=== PATIENT | female | born 1950 | race Caucasian/White ===

== ENCOUNTER → 2022-04-16 14:14 | Outpatient (BNVA) | payer MEDICARE, MEDICAID, SELFPAY | PROVIDERS: Family Provider Internal Medicine; PCP Student in an Organized Health Care Education/Training Program; Referring Provider Student in an Organized Health Care Education/Training Program; Visit Provider Specialist | DX: G56.11 Other lesions of median nerve, right upper limb (principal); G56.02 Carpal tunnel syndrome, left upper limb | CPT/HCPCS: 95909 ==

== ENCOUNTER → 2022-05-21 15:18 | Outpatient (BNVA) | payer MEDICARE, MEDICAID, SELFPAY | PROVIDERS: Family Provider Internal Medicine; PCP Student in an Organized Health Care Education/Training Program; Referring Provider Student in an Organized Health Care Education/Training Program; Visit Provider Specialist | DX: G56.01 Carpal tunnel syndrome, right upper limb (principal) | CPT/HCPCS: 73110 ==

== ENCOUNTER 2022-05-21 16:19 | Outpatient (CLI) | payer MEDICARE, MEDICAID, SELFPAY | END 2022-05-21 16:20 | disposition home or self-care (01) | LOC: SPT 16:20 | PROVIDERS: Family Provider Internal Medicine; PCP Student in an Organized Health Care Education/Training Program; Visit Provider Specialist | DX: Z46.89 Encounter for fitting and adjustment of other specified devices (principal); G56.01 Carpal tunnel syndrome, right upper limb | CPT/HCPCS: 97760; 99204; L3908 ==

== ENCOUNTER 2022-06-20 07:36 | Day surgery (SDC) | payer MEDICARE, MEDICAID, SELFPAY ==
[2022-06-20 07:59] VITALS: BP 208/96; PULSE 91; RESP 17; TEMP 36.3; O2SAT 97
--- NOTE | 2022-06-20 08:11 | ANES.PREANE2 ---
Pre-Anesthetic Assessment Height/Weight: Height 1.55 m Weight 63.049 kg Temp Pulse Resp BP Pulse Ox O2 Del Method 97.4 F L 91 17 208/96 97 06/20/22 07:59 06/20/22 07:59 06/20/22 07:59 06/20/22 07:59 06/20/22 07:59 06/20/22 07:59 Preop Diagnosis: Right carpal tunnel syndrome Operation Date: 06/20/22 09:30 Proposed Procedures p RIGHT CARPAL TUNNEL RELEASE 56329,G56.0(Right) - Lisa Torrez MD Familial anesthetic complications: none Was Beta Antionette taken within 24 hours: N/A Was Clonidine taken within 24 hours: N/A Last intake: > 8 hrs Social No alcohol and No tobacco Exam alert, oriented x 3, clear to auscultation bilaterally and regular rate & rhythm Airway Mallampati: Class II Dentition: other (no teeth) CV/HEM Hypertension GI Gastroesophageal Reflux Disease Metabolic Diabetes Mellitus and Thyroid Disease Anesthetic Plan ASA status: 3 Anesthesia: General Risk of > 500 ml blood loss (7ml/kg in children): No Medications/Allergies Home Medications Medication Instructions Recorded Confirmed Last Taken Type citalopram 20 mg tablet 20 mg PO DAILY 04/16/22 05/21/22 Unknown History cyclobenzaprine 5 mg tablet 5 mg PO TID PRN Spasms 04/16/22 06/20/22 Unknown History dulaglutide 1.5 mg/0.5 mL mg SUBCUT ONCE 04/16/22 05/21/22 Unknown History subcutaneous pen injector (Trulicity) levothyroxine 125 mcg capsule 125 mcg PO DAILY 04/16/22 06/20/22 06/18/22 History lisinopril 20 mg tablet 20 mg PO BID 04/16/22 06/20/22 Unknown History metformin 1,000 mg tablet 1,000 mg PO BID 04/16/22 06/20/22 Unknown History omeprazole 40 mg capsule,delayed 40 mg PO DAILY 04/16/22 06/20/22 Unknown History release sitagliptin 100 mg tablet (Januvia) 100 mg PO DAILY 04/16/22 06/20/22 Unknown History cock up splint #1 ea 05/21/22 05/21/22 Unknown Rx Allergies Allergy/AdvReac Type Severity Reaction Status Date / Time diazepam [From Valium] Allergy Unknown Verified 05/21/22 15:22 metronidazole [From Flagyl] Allergy Unknown Verified 05/21/22 15:22 nitrofurantoin Allergy Unknown Verified 05/21/22 15:22 [From Macrodantin] Sulfa (Sulfonamide Allergy Unknown Verified 05/21/22 15:22 Antibiotics) [facility] Anesthesia Social History Smoking and tobacco status: never smoked Alcohol intake: never History of recent travel: No Data Anesthesia Cardiac Studies: No Data to Display
[2022-06-20] MEDS: CELEcoxib 200 mg Capsule 400 MG PO (08:24)
[2022-06-20] MEDS: acetaminophen 1,000 MG/100 ML PIGGYBACK 400 MG IV (08:24)
[2022-06-20] MEDS: sodium chloride 0.9% 1,000 ML 30 ML IV (08:24)
[2022-06-20 08:28] LABS: Glucose Point of Care 153 mg/dL (70-110)
--- NOTE | 2022-06-20 09:04 | P.HPUD_ITS ---
Surgery/Procedure H&P Update DATE OF PROCEDURE: June 20, 2022 DATE H&P PERFORMED: 05/21/22 H&P UPDATE INFORMATION: I have reviewed H&P completed within last 30 days, I have examined patient prior to procedure, No changes to prior documentation and [place] [facility] [place] date indicated PREOP DIAGNOSIS: Right carpal tunnel syndrome PLANNED PROCEDURE: Operation Date: 06/20/22 09:30 Proposed Procedures p RIGHT CARPAL TUNNEL RELEASE [id number],G56.0(Right) - Lisa Torrez MD Related Problem List Diagnoses (1) Carpal tunnel syndrome on right:
[2022-06-20] MEDS: ceFAZolin 2,000 MG in sodium chloride 0.9% (plus) 50 ML 100 MG IV (09:15)
[2022-06-20 10:09] VITALS: BP 179/93; PULSE 117; RESP 20; TEMP 36.1; O2SAT 95
[2022-06-20 10:15] VITALS: BP 177/79; PULSE 91; RESP 18; O2SAT 99
[2022-06-20 10:20] VITALS: BP 176/79; PULSE 88; RESP 17; O2SAT 94
--- NOTE | 2022-06-20 10:22 | PM.OP ---
Operative Report Date of procedure: June 20, 2022 Pre-op diagnosis: Right carpal tunnel syndrome Post-op diagnosis: Right carpal tunnel syndrome Post-op findings: Tight carpal canal consistent with diagnosis of carpal tunnel syndrome Procedure done: Right carpal tunnel release Pathology: none sent Surgeon: Lisa Trorez Anesthesia: General (Per LMA, ASA 3) Estimated blood loss (mL): 2 Tourniquet time (min): 19 (At 250 mmHg) IV fluids (mL): 400 Urine output (mL): 0 (No Lopez) Complications: None Findings: Tight carpal canal with findings consistent with carpal tunnel syndrome. Condition: stable Disposition: PACU (Then transferred to same-day surgery for discharge to home) Brief History: Saira Oates is a 72-year-old woman who presented to my office with complaints consistent with carpal tunnel syndrome. She had electrodiagnostic studies confirming this as well. After evaluation and discussion of the surgical procedure, the patient wished to proceed. Risks and complications were discussed with her, consents were signed and questions were answered. Procedure: The patient was brought to the operating theater. The patient had a general anesthesia per LMA, ASA 3. The tourniquet was elevated to 250 mmHg for a total tourniquet time of 19 minutes. The patient was also given Ancef 2 g preoperatively. The arm was then prepped and draped with DuraPrep in usual fashion with the arm draped free. A surgical pause was performed. At the time, the surgical pause, we confirmed the site and side of surgery. We also confirmed the patient's identity, appropriate and timely administration of preoperative antibiotics and preoperative surgical markings. An incision was then made along the thenar crease. The incision crossed the wrist joint in a curvilinear fashion. Dissection continued through skin and soft tissues using a scalpel. The palmaris longus was identified along with the transverse carpal ligament. Each of these was released carefully to avoid injury to the median nerve. We were able to dissect gently into the carpal canal which was noted to be quite tight with significant compression across the median nerve.? After release, the canal was subsequently palpated to assure there was no bony encroachment upon the canal.? The canal was then palpated distally and proximally to assure that my small finger was passed easily without impingement. Finding this to be so, attention was directed to closure. The wound was irrigated with ropivacaine plain. It was then closed with 3-0 nylon in an interrupted mattress fashion. Sterile dressing was then placed consisting of Dermabond, OpSite, fluffed fluffs, sterile soft roll, and an Sudheer wrap. The tourniquet was released after 19 minutes. There were no complications. There were no specimens. The procedure was well tolerated. Plan is the patient will be discharged home. Related Problem List Diagnoses (1) Carpal tunnel syndrome on right:
[2022-06-20 10:30] VITALS: BP 134/75; PULSE 86; RESP 16; TEMP 36.2; O2SAT 93
[2022-06-20 11:00] VITALS: BP 141/78; PULSE 84; RESP 16; TEMP 36.2; O2SAT 94
--- NOTE | 2022-06-20 19:47 | ANE.PACU2 ---
Inpatient post-anesthesia follow up: Airway intact: Yes Vital signs: Temperature 97.1 F Pulse Rate 84 Respiratory Rate 16 Blood Pressure 141/78 Pulse Oximetry 94 Oxygen Delivery Me thod Room Air Oxygen Flow Rate 6 Fraction of Inspir ed Oxygen Hydration adequate: Yes Nausea and vomiting: No Pain level: 1 Mental status: Baseline
== END 2022-06-20 11:15 | disposition home or self-care (01) ==
PROVIDERS: PCP Nurse Practitioner Family; Visit Provider Specialist
PROC: (CPT 64721; principal; 2022-06-20 09:30)
DX: G56.01 Carpal tunnel syndrome, right upper limb (principal); I10 Essential (primary) hypertension; E11.9 Type 2 diabetes mellitus without complications; K21.9 Gastro-esophageal reflux disease without esophagitis; E07.9 Disorder of thyroid, unspecified; Z79.84 Long term (current) use of oral hypoglycemic drugs
CPT/HCPCS: 64721; 36416; 82962; J0131; J0690; J1100; J2405; J2704; J3010; J3490; J7030

== ENCOUNTER → 2022-07-10 10:51 | Outpatient (BNVA) | payer MEDICARE, MEDICAID, SELFPAY | PROVIDERS: PCP Nurse Practitioner Family; Visit Provider Nurse Practitioner Family | DX: G56.01 Carpal tunnel syndrome, right upper limb (principal); Z98.890 Other specified postprocedural states | CPT/HCPCS: 99024 ==